=== PATIENT | female | born 1980 | race Caucasian/White ===

== ENCOUNTER 2018-12-22 10:54 | Day surgery (SDC) | payer OTHER ==
[~2018-12-22 10:54] MED LIST: SOD CHLORIDE 0.9% 1,000 ML IV
[2018-12-22] MEDS ORDERED: FENTAnyl 50 MCG/ML VIAL (14:12)
[2018-12-22] MEDS ORDERED: NEOSTIGMINE 3 MG/3 ML SYRINGE (14:12)
[2018-12-22] MEDS ORDERED: ONDANSETRON 4 MG INJ (14:12)
[2018-12-22] MEDS ORDERED: MIDAZOLAM 1 MG/ML 2 ML INJ (14:12)
[2018-12-22] MEDS ORDERED: CEFAZOLIN 1 GM INJ (14:12)
[2018-12-22] MEDS ORDERED: DEXAMETHASONE 4 MG/ML 5 ML INJ (14:12)
[2018-12-22] MEDS ORDERED: PROPOFOL 20 ML (14:12)
[2018-12-22] MEDS ORDERED: ROCURONIUM 50 MG INJ (14:12)
[2018-12-22] MEDS ORDERED: GLYCOPYRROLATE 0.4 MG INJ (14:12)
[2018-12-22] MEDS ORDERED: ROPIVACAINE 0.5 % 30 ML VIAL (14:15)
[2018-12-22] MEDS ORDERED: MEPERIDINE 25 MG INJ IV (14:30)
[2018-12-22] MEDS ORDERED: DIPHENHYDRAMINE 50 MG INJ IV (14:30)
[2018-12-22] MEDS ORDERED: FENTAnyl 50 MCG/ML VIAL IV ×2 (14:30)
[2018-12-22] MEDS ORDERED: EPHEDrine 25 MG/5 ML SYG IV (14:30)
[2018-12-22] MEDS ORDERED: HYDROmorphONE 1 MG/5 ML IV SYRINGE IV ×2 (14:30)
[2018-12-22] MEDS ORDERED: IPRATROPIUM (NEB) 0.5 MG/2.5 ML AMP HHN (14:30)
[2018-12-22] MEDS ORDERED: TRIMETHOBENZAMIDE 100 MG/ML VIAL IM (14:30)
[2018-12-22] MEDS ORDERED: ALBUTEROL 0.083% (NEB) 2.5 MG/3 ML AMP HHN (14:30)
[2018-12-22] MEDS ORDERED: MIDAZOLAM 1 MG/ML 2 ML INJ IV (14:30)
[2018-12-22] MEDS ORDERED: hydrALAzine 20 MG INJ IV (14:30)
[2018-12-22] MEDS ORDERED: LABETALOL HCL 20MG INJ IV (14:30)
[2018-12-22] MEDS ORDERED: OXYCODONE/ACETAMINOPHEN (5/325) TAB PO ×2 (14:30)
[2018-12-22] MEDS ORDERED: SUGAMMADEX SODIUM 200 MG/2 ML VIAL IV (14:53)
[2018-12-22] MEDS ORDERED: ESMOLOL 10 ML (15:13)
[2018-12-22] MEDS: CEFAZOLIN 2 GM/50 ML (PMX) 50 ML IVPB (15:18)
[2018-12-22] MEDS: ONDANSETRON 4 MG INJ IV (16:02)
[2018-12-22] MEDS: HYDROmorphONE 1 MG/5 ML IV SYRINGE IV ×3 (16:03→16:23)
[2018-12-22] MEDS: FENTAnyl 50 MCG/ML VIAL IV ×3 (16:03→16:22)
[2018-12-22] MEDS: HYDROCODONE/APAP (5/325) TAB PO (16:05)
== END 2018-12-22 17:08 | disposition home or self-care (01) ==
LOC: SDS 10:54
DX: K80.10 Calculus of gallbladder with chronic cholecystitis without obstruction (principal); E66.09 Other obesity due to excess calories
CPT/HCPCS: 47564; 88304